=== PATIENT | female | born 1975 | race Caucasian/White ===

== ENCOUNTER → 2018-10-27 | Outpatient (CLI) | payer OTHER ==
[~2018-10-27] MED LIST: ALBUTEROL2.5 MG/3 M IH; ATIVAN1 MG PO; CELEXA40 MG; DOXYCYCLINE 10100 MG PO; FLEXERIL PO; HYDROCHLOROTH12.5 M1; HYDROCODON-ACE1 EAC7 PO; IBUPROFEN 600600 M1 PO; LEXAPRO 10 MG T10 M1; NAPROSYN500 MG PO; NORCO 5-325 TA1 EACH PO; PREDNISONE 20 M20 M1 PO; PROAIR HFA8.5 GM; QVAR HFA 880 MCG/UN1; TOPAMAX50 MG; WELLBUTRIN SR150 MG
--- NOTE | 2018-10-27 17:09 | 2DMMODE ---
[place] [address] 2 D/M-MODE ECHOCARDIOGRAM Name: COLE DE ANDA Room: [facility]#: [id number] Admission: 10/27/18 Attend Phys: Teddy Steward MD Discharge: Date of : 79 Date of Service: 10/27/18 1708 Report #: [id number] THIS REPORT FOR: //name// APPROVED REPORT Study performed: 10/27/2018 09:13:59 EXAM: Comprehensive 2D, Doppler, and color-flow Echocardiogram Patient Location: Out-Patient Status: routine BSA: 1.87 HR: 85 bpm BP: 116/78 mmHg Other Information Study Quality: Good Indications Hypertension/HDD 2D Dimensions IVSd: 8.96 (7-11mm) LVOT Diam: 20.82 (18-24mm) LVDd: 41.83 mm PWd: 8.96 (7-11mm) Ascending Ao: 25.90 (22-36mm) LVDs: 23.72 (25-40mm) Aortic Root: 21.36 mm Volumes Left Atrial Volume (Systole) LA ESV Index: 20.40 mL/m2 Aortic Valve AoV Peak Andrea.: 1.05 m/s AO Peak Gr.: 4.42 mmHg LVOT Max P.53 mmHg AO Mean Gr.: 2.56 mmHg LVOT Mean P.98 mmHg LVOT Max V: 1.06 m/s AO V2 VTI: 19.47 cm LVOT Mean V: 0.63 m/s TERESA (VTI): 3.72 cm2 LVOT V1 VTI: 21.27 cm Mitral Valve E/A Ratio: 1.36 MV Decel. Time: 178.19 ms MV E Max Andrea.: 0.73 m/s MV PHT: 51.[place] [address] 2 D/M-MODE ECHOCARDIOGRAM Name: COLE DE ANDA Room: [facility]#: [id number] Admission: 10/27/18 Attend Phys: Teddy Steward MD Discharge: Date of : 79 Date of Service: 10/27/18 1708 Report #: [id number] MVA (PHT): 4.26 cm2 TDI E/Lateral E': 6.64 E/Medial E': 6.64 Medial E' Andrea.: 0.11 m/s Lateral E' Andrea.: 0.11 m/s Pulmonary Valve PV Peak Andrea.: 0.90 m/s PV Peak Gr.: 3.27 mmHg Left Ventricle The left ventricle is normal size. There is normal LV segmental wall motion. There is normal left ventricular wall thickness. Left ventricular systolic function is normal. The left ventricular ejection fraction is within the normal range. LVEF is 55-60%. The left ventricular diastolic function is normal. Right Ventricle The right ventricle is normal size. The right ventricular systolic function is normal. Atria The left atrium size is normal. The right atrium size is normal. Aortic Valve The aortic valve is normal in structure. No aortic regurgitation is present. There is no aortic valvular stenosis. Mitral Valve The mitral valve is normal in structure. There is no mitral valve regurgitation noted. No evidence of mitral valve stenosis. Tricuspid Valve The tricuspid valve is normal in structure. There is no tricuspid valve regurgitation noted. Pulmonic Valve The pulmonary valve is normal in structure. There is no pulmonic valvular regurgitation. Great Vessels The aortic root is normal in size. IVC is normal in size and collapses >50% with [place] [address] 2 D/M-MODE ECHOCARDIOGRAM Name: COLE DE ANDA Stephen Room: [facility]#: [id number] Admission: 10/27/18 Attend Phys: Teddy Steward MD Discharge: Date of : 79 Date of Service: 10/27/18 1708 Report #: [id number] There is no pericardial effusion. <Conclusion> The left ventricle is normal size. There is normal left ventricular wall thickness. Left ventricular systolic function is normal. The left ventricular ejection fraction is within the normal range. LVEF is 55-60%. The left ventricular diastolic function is normal. The right ventricle is normal size. The left atrium size is normal. The aortic valve is normal in structure. The mitral valve is normal in structure. There is no pericardial effusion. There is normal LV segmental wall motion. <ELECTRONICALLY SIGNED> By: Alphonso Ward MD, FACC 10/27/181707 07 07 Alphonso Ward MD, FACC /INF
== END ==
LOC: M.CRD 08:56
DX: I10 Essential (primary) hypertension (principal); Z88.2 Allergy status to sulfonamides; Z88.8 Allergy status to other drugs, medicaments and biological substances

== ENCOUNTER 2018-11-11 09:47 | Emergency (ER) | payer OTHER ==
[~2018-11-11] VITALS: Ht 162.6 cm; Wt 81.7 kg
[2018-11-11] MEDS ORDERED: CHLORTHALIDONE25 MG PO (10:00)
[2018-11-11] MEDS ORDERED: BUTALB-APAP-CA1 EACH PO (11:03)
[2018-11-11] MEDS ORDERED: NABUMETONE 750750 M1 PO (11:03)
[2018-11-11] MEDS ORDERED: ONDANSETRON HCL4 M2 PO (11:03)
[2018-11-11 11:23] VITALS: BP 147/98
== END 2018-11-11 11:23 | disposition home or self-care (01) ==
LOC: M.ERS 09:47
DX: S00.03XA Contusion of scalp, initial encounter (principal); S06.0X9A Concussion with loss of consciousness of unspecified duration, initial encounter; F41.9 Anxiety disorder, unspecified; F32.9 Major depressive disorder, single episode, unspecified; J45.909 Unspecified asthma, uncomplicated; I10 Essential (primary) hypertension; F42.9 Obsessive-compulsive disorder, unspecified; F17.210 Nicotine dependence, cigarettes, uncomplicated; Z88.1 Allergy status to other antibiotic agents; W18.39XA Other fall on same level, initial encounter; Y93.89 Activity, other specified; Y92.89 Other specified places as the place of occurrence of the external cause; Y99.8 Other external cause status

== ENCOUNTER → 2019-08-27 | Outpatient (CLI) | payer OTHER ==
[~2019-08-27] MED LIST changes: +BUTALB-APAP-CA1 EACH PO; +CHLORTHALIDONE25 MG PO; +NABUMETONE 750750 M1 PO; +ONDANSETRON HCL4 M2 PO
== END ==
LOC: M.ULTRA 10:00
DX: M79.632 Pain in left forearm (principal)